=== PATIENT | male | born 1960 | race American Indian/Alaskan Native ===

== ENCOUNTER 2018-03-25 09:24 | Outpatient (CLI) | payer MEDICAID ==
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
== END 2018-03-25 09:25 | disposition home or self-care (01) ==
LOC: XRAY 09:24
PROVIDERS: ATTEND Internal Medicine Cardiovascular Disease
DX: R06.00 Dyspnea, unspecified (principal)
CPT/HCPCS: 71046